=== PATIENT | female | born 1960 | race Caucasian/White ===

== ENCOUNTER → 2019-03-20 | Outpatient (REF) | payer OTHER ==
[2019-03-20 12:48] LABS: BLOOD UREA NITROGEN 23 MG/DL (7-18); CREATININE FOR GFR 0.96 MG/DL (0.55-1.30); GLOMERULAR FILTRATION RATE > 60.0 (>51)
== END ==
LOC: M LABDRAW1 08:37
PROVIDERS: ATTEND Physical Medicine & Rehabilitation
DX: M47.897 Other spondylosis, lumbosacral region (principal)